=== PATIENT | female | born 1980 | race African-American/Black ===

== ENCOUNTER 2024-06-22 12:34 | Emergency (ER) | payer OTHER ==
[~2024-06-22] VITALS: Ht 160 cm; Wt 59.0 kg
[2024-06-22] MEDS ORDERED: DIOVAN40 MG PO (13:39)
[2024-06-22] MEDS ORDERED: HYDRALAZINE HCL25 MG PO (13:42)
[2024-06-22] MEDS ORDERED: GUAIFENESIN/DEXTROMETHORPHAN 100MG/10ML BLIST.PACK PO ONE (15:15)
[2024-06-22] MEDS ORDERED: CEFTRIAXONE SODIUM 1,000 MG VIAL IM ONE (15:15)
[2024-06-22] MEDS ORDERED: KETOROLAC TROMETHAMINE 30 MG VIAL IM ONE (15:15)
[2024-06-22] MEDS ORDERED: CETIRIZINE HCL 5 MG/5 ML ML PO ONE (15:15)
[2024-06-22] MEDS ORDERED: CEFTRIAXONE SODIUM 1,000 MG VIAL ONE (15:16)
[2024-06-22] MEDS ORDERED: KETOROLAC TROMETHAMINE 30 MG VIAL ONE (15:16)
[2024-06-22] MEDS ORDERED: CETIRIZINE HCL 5MG/5ML BLIST.PACK PO ONE (15:16)
[2024-06-22] MEDS ORDERED: GUAIFENESIN 200 MG/10 ML BLIST.PACK PO ONE (15:17)
[2024-06-22 15:39] LABS: HEMATOCRIT 43.7 % (36.0-45.00); HEMOGLOBIN 15.3 g/dL (12.0-15.00); MEAN CELL VOLUME 87.2 fL (80.00-100.00); MEAN CORPUSCULAR HEMOGLOBIN 30.5 pg (27.00-32.0); MEAN CORPUSCULAR HGB CONC 34.9 g/dl (32.0-36.0); PLATELET COUNT 218 K/uL (150-450); RED BLOOD COUNT 5.01 M/uL (4.00-6.00); RED CELL DISTRIBUTION WIDTH 13.4 % (11.5-14.5)
[2024-06-22] MEDS ORDERED: TUSSIN DM LIQU118 ML PO (17:07)
[2024-06-22] MEDS ORDERED: ZYRTEC10 MG PO (17:07)
[2024-06-22] MEDS ORDERED: AMOX-CLAV 875-1 EAC1 PO (17:07)
== END 2024-06-22 17:40 | disposition home or self-care (01) ==
LOC: ER 12:36
PROVIDERS: General Practice
DX: H66.91 Otitis media, unspecified, right ear (principal); J00 Acute nasopharyngitis [common cold]; Z91.013 Allergy to seafood; I10 Essential (primary) hypertension